=== PATIENT | female | born 1960 | race Caucasian/White ===

== ENCOUNTER 2023-10-18 08:01 | Outpatient (OUT) | payer OTHER, SELFPAY ==
--- NOTE | 2023-10-18 08:04 | MM_ITS ---
Patient Name: PETE FLOYD MR#: [id number] : 1960 Exam Date: 10/18/2023 Ordering Doctor: DR LAWANDA ESPINOZA . RADIOLOGY REPORT PROCEDURE: MM TOMOSYNTHESIS SCREENING BI COMPARISON: MG MAMM SCREEN 3D CAROL CAD, 10/16/2022. MG MAMM CAROL DIAG FU, 10/18/2022. MG STEREO CORE NDL W CLIP LT, 10/29/2022. MAMMO POST BIOPSY LEFT, 10/29/2022. INDICATIONS: Screening Calculator Name NCI Breast Cancer Risk Assessment Tool 5 Year Breast Cancer Risk 1.90% Lifetime Breast Cancer Risk 8.40% Personal Breast Cancer No Personal Ovarian Cancer No Treatments None Family Cancers None LOCATION: [facility] BREAST COMPOSITION: Scattered areas fibroglandular density. FINDINGS: DIAGNOSTIC CATEGORY 2--BENIGN FINDING. NO CHANGE FROM COMPARISON. Scattered benign-appearing calcifications are present. Scattered benign-appearing lymph nodes are present. Scattered benign-appearing nodules are present. RIGHT BREAST: No significant suspicious finding. LEFT BREAST: No significant suspicious finding. Micro clip marker upper outer quadrant, mid breast RECOMMENDATIONS: ROUTINE MAMMOGRAM AND CLINICAL EVALUATION IN 12 MONTHS. PLEASE NOTE: A NORMAL MAMMOGRAM DOES NOT EXCLUDE THE POSSIBILITY OF BREAST CANCER. A CLINICALLY SUSPICIOUS PALPABLE LUMP SHOULD BE BIOPSIED. Dictated by: Art Pack MD on 10/21/2023 at 07:57 Approved by: Art Pack MD on 10/21/2023 at 08:05
== END 2023-10-18 08:02 | disposition home or self-care (01) ==
LOC: MAMMO 08:01
PROVIDERS: PCP Family Medicine; Visit Provider Family Medicine
DX: Z12.31 Encounter for screening mammogram for malignant neoplasm of breast (principal)
CPT/HCPCS: 77063; 77067

== ENCOUNTER 2024-12-28 13:24 | Outpatient (OUT) | payer OTHER, SELFPAY ==
--- NOTE | 2024-12-28 13:29 | MM_ITS ---
Patient Name: PETE FLOYD MR#: [id number] : 1960 Exam Date: 12/28/2024 Ordering Doctor: DR Boogie Lopez . RADIOLOGY REPORT PROCEDURE: MM TOMOSYNTHESIS SCREENING BI COMPARISON: MM TOMOSYNTHESIS SCREENING BI, 10/18/2023. MAMMO POST BIOPSY LEFT, 10/29/2022. MG STEREO CORE NDL W CLIP LT, 10/29/2022. MG MAMM CAROL DIAG FU, 10/18/2022. INDICATIONS: Screening for malignant neoplasm Calculator Name NCI Breast Cancer Risk Assessment Tool 5 Year Breast Cancer Risk 1.90% Lifetime Breast Cancer Risk 8.10% Personal Breast Cancer No Personal Ovarian Cancer No Treatments None Family Cancers None LOCATION: [facility] BREAST COMPOSITION: There are scattered areas of fibroglandular density. FINDINGS: DIAGNOSTIC CATEGORY 1--NEGATIVE. LEFT BREAST: No significant suspicious finding. RIGHT BREAST: No significant suspicious finding. RECOMMENDATIONS: ROUTINE MAMMOGRAM AND CLINICAL EVALUATION IN 12 MONTHS. PLEASE NOTE: A NORMAL MAMMOGRAM DOES NOT EXCLUDE THE POSSIBILITY OF BREAST CANCER. A CLINICALLY SUSPICIOUS PALPABLE LUMP SHOULD BE BIOPSIED. Dictated by: Diego Cartwright DO on 12/28/2024 at 16:36 Approved by: Diego Cartwright DO on 12/28/2024 at 16:38
== END 2024-12-28 13:25 | disposition home or self-care (01) ==
LOC: MAMMO 13:25
PROVIDERS: PCP Family Medicine; Visit Provider Family Medicine
DX: Z12.31 Encounter for screening mammogram for malignant neoplasm of breast (principal)
CPT/HCPCS: 77063; 77067

== ENCOUNTER 2025-04-02 13:46 | Emergency (ER) | payer OTHER, SELFPAY ==
[2025-04-02 13:49] VITALS: BP 168/98; PULSE 60; TEMP 36.7; O2SAT 99
--- OUTSIDE RECORDS SUMMARY | 2025-04-02 13:55 | XMS_ITS | Clinical Summary ---
Author Organization [employer] [facility] Address [id number] [address] [place] [address] Care Team Providers Care Report Clerk Name Role Phone Regla Madden DO Primary Care Provider Unavaila ble Allergies No known active allergies Medications aspirin 81 mg Take 81 mg by mouth daily. Active losartan (COZAAR) 25 mg tablet Take 25 mg by mouth daily. Active pravastatin (PRAVACHOL) 40 mg tablet Take 40 mg by mouth daily. Active hydroCHLOROthiaz j carlos (HYDRODIURIL) 50 mg tablet Take 50 mg by mouth daily. Active kyvbpbtf-tnok-XI -calcium &mins (THERAGRAN-M) 9 mg iron-400 mcg tablet Take 1 tablet by mouth daily. Active propranoloL (INDERAL) 80 mg tablet Take 80 mg by mouth daily. Active metFORMIN (GLUCOPHAGE) 850 mg tablet Take 850 mg by mouth 2 (two) times a day with meals. Active Family History Medical History Relation Name Comments Breast cancer Neg Hx Social History Tobacco Use Types Packs/Day Years Used Date Smoking Tobacco: Never Smokeless Tobacco: Never Alcohol Use Standard Drinks/Week Comments Yes 0 (1 standard drink = 0.6 oz pur e alcohol) Childcare Answer Date Recorded Childcare Unknown 03/11/2019 Employment Answer Date Recorded Employment Unknown 03/11/2019 Purpose - Life Answer Date Recorded Purpose and direction in life Unknown Comments No Sex and Gender Information Value Date Recorded Sex Assigned at Not on file Legal Sex Female 11:31 AM EDT Gender Identity Not on file Sexual Orientation Not on file Last Filed Vital Signs Vital Sign Reading Time Taken Comments Blood Pressure 141/96 06/01/2021 8:09 AM EDT Pulse 60 06/01/2021 8:05 AM EDT Temperature 36.4 C (97.6 F) 06/01/2021 6:23 AM EDT Respiratory Rate 15 06/01/2021 8:05 AM EDT Oxygen Saturation 93% 06/01/2021 8:05 AM EDT Inhaled Oxygen Concentration - - Weight 127 kg (280 lb) 06/01/2021 6:23 AM EDT Height 167.6 cm (5' 6 ) 06/01/2021 6:23 AM EDT Body Mass Index 45.19 06/01/2021 6:23 AM EDT Plan of Treatment Health Maintenance Due Date Last Done Comments Depression Screening 1973 Tobacco Screening 1973 Adult BMI Screening 1979 DTaP,Tdap and Td Vaccines (1 - Tdap) 1980 Pap Smear 1982 COVID-19 Vaccine (3 - 2023-2 5 season) 2024 12/23/2020, 11/23/2020 Influenza Vaccine 05/31/2025 06/29/2020, , 05/31/2018, Additional history exists Zoster (Shingles) Vaccine Completed 05/20/2019, Medical Devices Implanted Type Area Respiratory Assistant Device Identifier Shelf Expiration Date Model / Serial / Lot Marker Brst Hydromark 18ga T3 Mammotome Stereotactic - [id number] Implanted:Qty: 1 on 08/04/2020 at [facility] Other Implant Right: Breast [employer] MAMMOTOME 05/22/2023 [id number] [id number] / / [id number] Insurance FRONTPATH Care Teams Report Clerk Relationship Specialty Start Date End Date Regla Madden DO PCP - General Family Medicine 05/30/21
--- OUTSIDE RECORDS SUMMARY | 2025-04-02 13:55 | XMS_ITS | CCD ---
Author Organization [facility] Care Team Providers Care Shopping Centre Manager Name Role Phone OLGA, DR BOOGIE Delatorre Admitting Unavailable NADERER, DR BOOGIE Delatorre Attending Unavailable NADERER, DR BOOGIE Delatorre Primary Care Unavailable CADWELL, DR FREDY Lyons Consulting Unavailable NADERER, DR BOOGIE Delatorre Consulting Unavailable NADERER, DR BOOGIE Delatorre Admitting Unavailable NADERER, DR BOOGIE Delatorre Attending Unavailable NADERER, DR BOOGIE Delatorre Primary Care Unavailable NADERER, DR BOOGIE Delatorre Consulting Unavailable NADERER, DR BOOGIE Delatorre Admitting Unavailable NADERER, DR BOOGIE Delatorre Attending Unavailable NADERER, DR BOOGIE Delatorre Primary Care Unavailable NUBIAEBDIA, DR ROBBY Lopez Consulting Unavailable NADERER, DR BOOGIE Delatorre Consulting Unavailable NADERER, DR BOOGIE Delatorre Admitting Unavailable NADERER, DR BOOGIE Delatorre Attending Unavailable NADERER, DR BOOGIE Delatorre Primary Care Unavailable ZIEBER, DR ROBBY Lopez Consulting Unavailable NADERER, DR BOOGIE Delatorre Consulting Unavailable Unavailable Primary Care Provider Unavailabl e Medications Current Medications Medication Drug Class(es) Dates Sig (Normalized) Sig (Original) hydroCHLOROthiazide 50 mg oral tablet (3 sources) Thiazide Diuretic Start: 4 End: 6 take 1 tablet by mouth once daily hydroCHLOROthiazide (HYDRODiuril) 50 MG tablet Indications: Essential hypertension, benign (CMS/HCC) Take 1 tablet (50 mg) by mouth 1 (one) time each day at the same time 90 tablet 3 01/04/2025 01/04/2026 Active losartan potassium 25 mg oral tablet (3 sources) Angiotensin 2 Receptor Renee Start: 4 End: 6 take 1 tablet by mouth once daily losartan (Cozaar) 25 MG tablet Indications: Essential hypertension, benign (CMS/HCC) Take 1 tablet (25 mg) by mouth 1 (one) time each day at the same time 90 tablet 3 01/04/2025 01/04/2026 Active metFORMIN hydrochloride 850 mg oral tablet (3 sources) Biguanide Start: 4 End: 6 take 1 tablet by mouth in the morning metFORMIN (Glucophage) 850 MG tablet Indications: Type 2 diabetes mellitus with hyperglycemia, without long-term current use of insulin (CMS/HCC) Take 1 tablet (850 mg) by mouth in the morning and 1 tablet (850 mg) in the evening. Take with meals. 180 tablet 3 01/04/2025 01/04/2026 Active pravastatin sodium 40 mg oral tablet (3 sources) HMG-CoA Reductase Inhibitor Start: 4 End: 6 take 1 tablet by mouth once daily pravastatin (Pravachol) 40 MG tablet Indications: Dyslipidemia (CMS/HCC) Take 1 tablet (40 mg) by mouth 1 (one) time each day at the same time 90 tablet 3 01/04/2025 01/04/2026 Active propranolol hydrochloride 80 mg oral tablet (3 sources) beta-Adrenergic Renee Start: End: 6 take 1 tablet by mouth in the morning propranolol (Inderal) 80 MG tablet Indications: Essential hypertension, benign (CMS/HCC) Take 1 tablet (80 mg) by mouth in the morning and 1 tablet (80 mg) before bedtime. 180 tablet 3 01/04/2025 01/04/2026 Active Problems Problem Classification Problem Date Documented Date Episodic/Chronic Diabetes mellitus with complications (2 sources) Type 2 diabetes mellitus with hyperglycemia; Translations: [Hyperglycemia due to type 2 diabetes mellitus] Onset: 07-29-2022 01-04-2025 Chronic Disorders of lipid metabolism (1 source) Dyslipidemia; Translations: [Hyperlipidemia, unspecified] 01-04-2025 Chronic Essential hypertension (1 source) Benign essential hypertension; Translations: [Essential (primary) hypertension] 01-04-2025 Chronic Nonmalignant breast conditions (1 source) Fibrosclerosis of left breast; Translations: [FIBROSCLEROSIS OF LEFT BREAST] Onset: 10-31-2022 Chronic Nonmalignant breast conditions (5 sources) Mammographic calcification found on diagnostic imaging of breast; Translations: [Unspecified lump in the left breast, upper outer quadrant] Onset: 10-23-2022 Episodic Other screening for suspected conditions (not mental disorders or infectious disease) (9 sources) Other abnormal and inconclusive findings on diagnostic imaging of breast; Translations: [Encounter for screening mammogram for malignant neoplasm of breast] Onset: 10-16-2022 Episodic Results Test Name Value Interpretation Reference Range Facility MM TOMOSYNTHESIS SCREENING B Ion 12-28-2024 [place] [address] Mammography Report Signed Patient: LAURITA RAPHAEL MR#: [id number] : 1960 Acct:[id number] Age/Sex: 64 / F ADM Date: 12/28/24 Loc: MAMMO Attending Dr: Boogie Espinoza M.D. Ordering Physician: Boogie Espinoza M.D. Results: Date of Service: 12/28/24 Follow Up: Procedure(s): MM tomosynthesis screening BI Accession Number(s): [id number] cc: Boogie Espinoza M.D. Patient Name: LAURITA RAPHAEL MR#: [id number] : 1960 Exam Date: 12/28/2024 Ordering Doctor: DR Boogie Espinoza . RADIOLOGY REPORT PROCEDURE: MM TOMOSYNTHESIS SCREENING BI COMPARISON: MM TOMOSYNTHESIS SCREENING BI, 10/18/2023. MAMMO POST BIOPSY LEFT, 10/29/2022. MG STEREO CORE NDL W CLIP LT, 10/29/2022. MG MAMM CAROL DIAG FU, 10/18/2022. INDICATIONS: Screening for malignant neoplasm Calculator Name NCI Breast Cancer Risk Assessment Tool 5 Year Breast Cancer Risk 1.90% Lifetime Breast Cancer Risk 8.10% Personal Breast Cancer No Personal Ovarian Cancer No Treatments None Family Cancers None LOCATION: The [facility] BREAST COMPOSITION: There are scattered areas of fibroglandular density. FINDINGS: DIAGNOSTIC CATEGORY 1--NEGATIVE. LEFT BREAST: No significant suspicious finding. RIGHT BREAST: No significant suspicious finding. RECOMMENDATIONS: ROUTINE MAMMOGRAM AND CLINICAL EVALUATION IN 12 MONTHS. PLEASE NOTE: A NORMAL MAMMOGRAM DOES NOT EXCLUDE THE POSSIBILITY OF BREAST CANCER. A CLINICALLY SUSPICIOUS PALPABLE LUMP SHOULD BE BIOPSIED. Dictated by: Diego Cartwright DO on 12/28/2024 at 16:36 Approved by: Diego Cartwright DO on 12/28/2024 at 16:38 Dictated By: Diego Cartwright M.D. Signed By: 12/28/249 DD/ 37 TD/TT: Crotch Piece Baster: [facility] Radiology, Radiologarun viera MD - 12/28/2024 [place] [address] Mammography Report Signed Patient: LAURITA RAPHAEL MR#: [id number] : 1960 Acct:[id number] Age/Sex: 64 / F ADM Date: 12/28/24 Loc: MAMMO Attending Dr: Boogie Espinoza M.D. Ordering Physician: Booige Espinoza M.D. Results: Date of Service: 12/28/24 Follow Up: Procedure(s): MM tomosynthesis screening BI Accession Number(s): [id number] cc: Boogie Espinoza M.D. Patient Name: LAURITA RAPHAEL MR#: [id number] : 1960 Exam Date: 12/28/2024 Ordering Doctor: DR Boogie Espinoza . RADIOLOGY REPORT PROCEDURE: MM TOMOSYNTHESIS SCREENING BI COMPARISON: MM TOMOSYNTHESIS SCREENING BI, 10/18/2023. MAMMO POST BIOPSY LEFT, 10/29/2022. MG STEREO CORE NDL W CLIP LT, 10/29/2022. MG MAMM CAROL DIAG FU, 10/18/2022. INDICATIONS: Screening for malignant neoplasm Calculator Name NCI Breast Cancer Risk Assessment Tool 5 Year Breast Cancer Risk 1.90% Lifetime Breast Cancer Risk 8.10% Personal Breast Cancer No Personal Ovarian Cancer No Treatments None Family Cancers None LOCATION: The [facility] BREAST COMPOSITION: There are scattered areas of fibroglandular density. FINDINGS: DIAGNOSTIC CATEGORY 1--NEGATIVE. LEFT BREAST: No significant suspicious finding. RIGHT BREAST: No significant suspicious finding. RECOMMENDATIONS: ROUTINE MAMMOGRAM AND CLINICAL EVALUATION IN 12 MONTHS. PLEASE NOTE: A NORMAL MAMMOGRAM DOES NOT EXCLUDE THE POSSIBILITY OF BREAST CANCER. A CLINICALLY SUSPICIOUS PALPABLE LUMP SHOULD BE BIOPSIED. Dictated by: Diego Cartwright DO on 12/28/2024 at 16:36 Approved by: Diego Cartwright DO on 12/28/2024 at 16:38 Dictated By: Diego Cartwright M.D. Signed By: 12/28/241638 DD/ 37 TD/TT: Crotch Piece Baster: [facility] Radiology Study observation (narrative) [facility] MM TOMOSYNTHESIS SCREENING B IOrdered By: Radiologist Radiology on 12-28-2024 [facility] Work Phone: MAMMO POST BIOPSY LEFTon MAMMO POST BIOPSY LEFT Patient: LAURITA RAPHAEL Exam Date: 10/29/2022 : 1960 Gender:F Ordering : DR BOOGIE ESPINOZA . Admission #: [id number] Family : Order #: [id number] CLICK HERE TO VIEW EXAM This report includes an Addendum and supersedes previous reports for this exam. RADIOLOGY REPORT PROCEDURE: MAMMOGRAM POST BIOPSY IMAGES COMPARISON: MG STEREO CORE NDL W CLIP LT, 10/29/2022. MG MAMM CAROL DIAG FU, 10/18/2022. MG MAMM SCREEN 3D CAROL CAD, 10/16/2022. MG MAMM DX 3D LT CAD, 08/15/2021. INDICATIONS: Mammographic calcification of left breast BREAST COMPOSITION: Scattered areas fibroglandular density. FINDINGS: BIOPSY MARKER: A metallic marker has been placed in the targeted location within the upper-outer quadrant of the left breast. BREAST FINDINGS: Expected post biopsy findings. RECOMMENDATIONS: Dictated by: Robby Nj M.D. on 10/29/2022 at 12:06 Approved by: Robby Nj M.D. on 10/29/2022 at 12:07 ADDENDUM: FINDINGS: DIAGNOSTIC CATEGORY 3--PROBABLY BENIGN FINDING. THE FOLLOWING FINDING(S) HAS A HIGH PROBABILITY OF A BENIGN ETIOLOGY: RECOMMENDATIONS: SHORT TERM FOLLOW-UP DIAGNOSTIC MAMMOGRAM LEFT BREAST IN 6 MONTHS. Dictated by: Robby Nj M.D. on 11/02/2022 at 12:52 Approved by: Robby Nj M.D. on 11/02/2022 at 12:52 [facility] MG STEREO CORE NDL W CLIP LT on 10-29-2022 MG STEREO CORE NDL W CLIP LT Patient: LAURITA RAPHAEL Exam Date: 10/29/2022 : 1960 Gender:F Ordering : DR BOOGIE ESPINOZA . Admission #: [id number] Family : Order #: [id number] CLICK HERE TO VIEW EXAM This report includes an Addendum and supersedes previous reports for this exam. RADIOLOGY REPORT PROCEDURE: MAMMOGRAM BIOPSY STEREO CORE COMPARISON: US BREAST LEFT LIMITED, 10/18/2022. INDICATIONS: Mammographic calcification of left breast DESCRIPTION: Following informed consent, digital stereotactic mammographic views were obtained to localize the lesion. Multiple vacuum-assisted core biopsies were obtained. Specimen images were obtained to confirm proper sampling. The location of the biopsy was then marked as indicated below. FINDINGS: RECOMMENDATIONS: SPECIMEN #, LOCATION: 5 core samples; upper outer quadrant. SPECIMEN IMAGE: Portion of the mass and calcifications seen within core 4. BIOPSY NEEDLE: 10 gauge Revolve(r) vacuum core biopsy needle. MARKER(S) PLACED: A single metallic marker was placed in the appropriate targeted location. MEDICATION: Buffered 1% lidocaine superficial;1% lidocaine with epinephrine deep. COMPLICATIONS: None. PATHOLOGY / LAB: Pending. CONCLUSION: 1. Technically successful biopsy of the breast lesion. 2. Pathology results are pending. An addendum will be added when pathology results are final. Dictated by: Robby Nj M.D. on 10/29/2022 at 09:12 Approved by: Robby Nj M.D. on 10/29/2022 at 09:15 ADDENDUM: Final pathologic diagnosis: Benign breast parenchyma with small intramammary lymph node, focal periductal chronic inflammation, and mild stromal fibrosis. No evidence of malignancy. Note was made by pathologist that microcalcifications were not identified. Pathologist was contacted since calcifications were seen on the tissue specimen radiographs. Tissues were re-examined with no visible calcifications. Pathologist mentions that due to make up of microcalcifications they may not be visible to him. Dictated by: Robby Nj M.D. on 11/02/2022 at 12:45 Approved by: Robby Nj M.D. on 11/02/2022 at 12:52 [facility] MG MAMM CAROL DIAG FUon 2022 MG MAMM CAROL DIAG FU Patient: GIOVANNI RAPHAEL Exam Date: 10/18/2022 : 1960 Gender:F Ordering : DR BOOGIE ESPINOZA . Admission #: [id number] Family : Order #: [id number] CLICK HERE TO VIEW EXAM RADIOLOGY REPORT PROCEDURE: MAMMOGRAM BILATERAL DIGANOSTIC DIGITAL FOLLOW UP, 10/18/2022, 12:46 ULTRASOUND BREAST LEFT LIMITED, 10/18/2022, 13:24 COMPARISON: MG MAMM SCREEN 3D CAROL CAD, 10/16/2022. INDICATIONS: Abnormal findings on diagnostic imaging of breast Calculator Name NCI Breast Cancer Risk Assessment Tool 5 Year Breast Cancer Risk 1.40% Lifetime Breast Cancer Risk 6.90% Personal Breast Cancer No Personal Ovarian Cancer No Treatments None Family Cancers None LOCATION: The [facility] BREAST COMPOSITION: Scattered areas fibroglandular density. FINDINGS: DIAGNOSTIC CATEGORY 4--SUSPICIOUS FOR MALIGNANCY. FINDING DOES NOT EXHIBIT CLASSIC FINDINGS OF BREAST CANCER: RIGHT BREAST: Spot magnification views demonstrate several collections of calcifications within the upper-outer quadrant favoring calcifying fibroadenomas. Annual screening recommended. LEFT BREAST: Spot magnification views demonstrate persistence of a partially circumscribed 7 mm mass within upper-outer quadrant, approximately 3 o'clock, containing numerous punctate calcifications. Ultrasound evaluation demonstrates a lymph node like structure which does not convincingly correspond to the mammographic findings. Stereotactic guided breast biopsy of the mass containing punctate calcifications is recommended. RECOMMENDATIONS: STEREOTACTIC BREAST BIOPSY: LEFT BREAST PLEASE NOTE: A NORMAL MAMMOGRAM DOES NOT EXCLUDE THE POSSIBILITY OF BREAST CANCER. A CLINICALLY SUSPICIOUS PALPABLE LUMP SHOULD BE BIOPSIED. Dictated by: Robby Nj M.D. on 10/18/2022 at 13:56 Approved by: Robby Nj M.D. on 10/18/2022 at 14:09 Normal [facility] US BREAST LEFT LIMITEDon US BREAST LEFT LIMITED Patient: LAURITA RAPHAEL Exam Date: 10/18/2022 : 1960 Gender:F Ordering : DR BOOGIE ESPINOZA . Admission #: [id number] Family : Order #: [id number] CLICK HERE TO VIEW EXAM RADIOLOGY REPORT PROCEDURE: MAMMOGRAM BILATERAL DIGANOSTIC DIGITAL FOLLOW UP, 10/18/2022, 12:46 ULTRASOUND BREAST LEFT LIMITED, 10/18/2022, 13:24 COMPARISON: MG MAMM SCREEN 3D CAROL CAD, 10/16/2022. INDICATIONS: Abnormal findings on diagnostic imaging of breast Calculator Name NCI Breast Cancer Risk Assessment Tool 5 Year Breast Cancer Risk 1.40% Lifetime Breast Cancer Risk 6.90% Personal Breast Cancer No Personal Ovarian Cancer No Treatments None Family Cancers None LOCATION: [facility] BREAST COMPOSITION: Scattered areas fibroglandular density. FINDINGS: DIAGNOSTIC CATEGORY 4--SUSPICIOUS FOR MALIGNANCY. FINDING DOES NOT EXHIBIT CLASSIC FINDINGS OF BREAST CANCER: RIGHT BREAST: Spot magnification views demonstrate several collections of calcifications within the upper-outer quadrant favoring calcifying fibroadenomas. Annual screening recommended. LEFT BREAST: Spot magnification views demonstrate persistence of a partially circumscribed 7 mm mass within upper-outer quadrant, approximately 3 o'clock, containing numerous punctate calcifications. Ultrasound evaluation demonstrates a lymph node like structure which does not convincingly correspond to the mammographic findings. Stereotactic guided breast biopsy of the mass containing punctate calcifications is recommended. RECOMMENDATIONS: STEREOTACTIC BREAST BIOPSY: LEFT BREAST PLEASE NOTE: A NORMAL MAMMOGRAM DOES NOT EXCLUDE THE POSSIBILITY OF BREAST CANCER. A CLINICALLY SUSPICIOUS PALPABLE LUMP SHOULD BE BIOPSIED. Dictated by: oRbby Nj M.D. on 10/18/2022 at 13:56 Approved by: Robby Nj M.D. on 10/18/2022 at 14:09 Normal [facility] MAMM SCREEN 3D CAROL CADon 10-16-2022 MAMM SCREEN 3D CAROL CAD Patient: LAURITA RAPHAEL Exam Date: 10/16/2022 : 1960 Gender:F Ordering : DR BOOGIE ESPINOZA . Admission #: [id number] Family : Order #: [id number] CLICK HERE TO VIEW EXAM RADIOLOGY REPORT PROCEDURE: MAMMOGRAM SCREENING 3D BILATERAL CAD COMPARISON: None. INDICATIONS: Screening mammography Calculator Name NCI Breast Cancer Risk Assessment Tool 5 Year Breast Cancer Risk 1.40% Lifetime Breast Cancer Risk 6.90% Personal Breast Cancer No Personal Ovarian Cancer No Treatments None Family Cancers None LOCATION: [facility] BREAST COMPOSITION: Scattered areas fibroglandular density. FINDINGS: DIAGNOSTIC CATEGORY 0--INCOMPLETE: NEED ADDITIONAL IMAGING EVALUATION. Scattered benign-appearing calcifications are present. Scattered benign-appearing lymph nodes are present. Numerous bilateral subcentimeter nodules. RIGHT BREAST: 2 clusters of microcalcifications in the upper-outer quadrant, mid breast. Spot magnification suggested for further characterization. LEFT BREAST: 0.7 mm well-circumscribed nodule with possible microcalcifications, outer left breast on the CC projection poorly visualized on MLO projection. Spot magnification is recommended. RECOMMENDATIONS: ADDITIONAL MAMMOGRAPHIC VIEWS REQUIRED: BILATERAL BREASTS - spot magnification PLEASE NOTE: A NORMAL MAMMOGRAM DOES NOT EXCLUDE THE POSSIBILITY OF BREAST CANCER. A CLINICALLY SUSPICIOUS PALPABLE LUMP SHOULD BE BIOPSIED. Dictated by: Fredy Pack MD on 10/16/2022 at 11:22 Approved by: Fredy Pack MD on 10/16/2022 at 11:26 Normal [facility] CBC AUTO DIFFon 07-24-2022 BASO # 0.1 103/ul Normal 0.0-0.1 [facility] Comment on above: Performed By: #### C BC #### [facility] [address] [place] [address] Dr. Gita Chow Basophils/100 WBC (Bld) 1.1 % Normal 0.2-2.0 [facility] Comment on above: Performed By: #### C BC #### [facility] [address] [place] [address] Dr. Gita Chow EO # 0.4 103/ul Normal 0.0-0.7 [facility] Comment on above: Performed By: #### C BC #### [facility] [address] [place] [address] Dr. Gita Chow Eosinophils/100 WBC (Bld) 4.5 % Normal 0.9-7.0 [facility] Comment on above: Performed By: #### C BC #### [facility] [address] [place] [address] Dr. Gita Chow Erythrocyte distribution width (RBC) [Ratio] 13.6 % Normal 11.0-15.0 [facility] Comment on above: Performed By: #### C BC #### [facility] [address] [place] [address] Dr. Gita Chow Hematocrit (Bld) [Volume fraction] 44.6 % Normal 36.0-48.0 [facility] Comment on above: Performed By: #### C BC #### [facility] [address] [place] [address] Dr. Gita Chow Hemoglobin (Bld) [Mass/Vol] 14.5 g/dL Normal 12.0-16.0 [facility] Comment on above: Performed By: #### C BC #### [facility] [address] [place] [address] Dr. Gita Chow IG # 0.03 10e3/ul Normal 0.00-0.03 [facility] Comment on above: Performed By: #### C BC #### [facility] [address] [place] [address] Dr. Gita Chow IG % 0.4 % Normal 0.0-0.5 [facility] Comment on above: Performed By: #### C BC #### [facility] [address] [place] [address] Dr. Gita Chow LYMPH # 2.3 103/ul Normal 1.2-3.8 [facility] Comment on above: Performed By: #### C BC #### [facility] [address] [place] [address] Dr. Gita Chow Lymphocytes/100 WBC (Bld) 28.2 % Normal 20.5-60.0 [facility] Comment on above: Performed By: #### C BC #### [facility] [address] [place] [address] Dr. Gita Chow MANUAL DIFF REQ NO Normal [facility] Comment on above: Performed By: #### C BC #### [facility] [address] [place] [address] Dr. Gita Chow MCH (RBC) [Entitic mass] 30.0 pg Normal 26.7-34.0 [facility] Comment on above: Performed By: #### C BC #### [facility] [address] [place] [address] Dr. Gita Chow MCHC (RBC) [Mass/Vol] 32.5 g/dL Normal 29.9-35.2 [facility] Comment on above: Performed By: #### C BC #### [facility] [address] [place] [address] Dr. Gita Chow MCV (RBC) [Entitic vol] 92.1 fL Normal 81.0-99.0 [facility] Comment on above: Performed By: #### C BC #### [facility] [address] [place] [address] Dr. Gita Chow MONO # 0.8 103/ul Normal 0.3-0.8 [facility] Comment on above: Performed By: #### C BC #### [facility] [address] [place] [address] Dr. Gita Chow Monocytes/100 WBC (Bld) 9.1 % Normal 1.7-12.0 [facility] Comment on above: Performed By: #### C BC #### [facility] [address] [place] [address] Dr. Gita Chow NEUT # 4.7 103/ul Normal 1.4-6.5 [facility] Comment on above: Performed By: #### C BC #### [facility] [address] [place] [address] Dr. Gita Chow Neutrophils/100 WBC (Bld) 56.7 % Normal 43.0-75.0 [facility] Comment on above: Performed By: #### C BC #### [facility] [address] [place] [address] Dr. Gita Chow Platelet mean volume (Bld) [Entitic vol] 10.7 fL Normal 9.5-13.5 [facility] Comment on above: Performed By: #### C BC #### [facility] [address] [place] [address] Dr. Gita Chow PLT 386 103/ul Normal 150-450 [facility] Comment on above: Performed By: #### C BC #### [facility] [address] [place] [address] Dr. Gita Chow RBC 4.84 106/ul Normal 4.20-5.40 [facility] Comment on above: Performed By: #### C BC #### [facility] [address] [place] [address] Dr. Gita Chow WBC 8.2 103/ul Normal 4.0-11.0 [facility] Comment on above: Performed By: #### C BC #### [facility] [address] [address] [address] Gita Chow GLYCOHEMOGLOBIN A1Con 2021 ADA RECOMMENDATION SEE BELOW Normal [facility] Comment on above: Result Comment: ADA RECOMMENDED LIMIT 4.0 - 6.0 ADA THERAPEUTIC TARGET < 7.0 ACTION SUGGESTED > 7.0 Performed By: #### A 1C #### [facility] [address] [place] [address] Dr. Gita Chow Glucose [Mass/Vol] 143 mg/dL Normal [facility] Comment on above: Performed By: #### A 1C #### [facility] [address] [place] [address] Dr. Gita Chow HbA1c (Bld) [Mass fraction] 6.6 % Critically high 4.5-6.2 [facility] Comment on above: Performed By: #### A 1C #### [facility] [address] [place] [address] Dr. Gita Chow LIPID PROFILEon 07-24-2022 CHOL-HDL RATIO NORM SEE BELOW Normal [facility] Comment on above: Result Comment: 3.3 - 4.4 LOW RISK 4.4 - 7.1 AVERAGE RISK 7.1 - 11.0 MODERATE RISK >11.0 HIGH RISK Performed By: #### T SH, LIPID, BMP, LIVER #### [facility] [address] [place] [address] Dr. Gita Chow Cholesterol [Mass/Vol] 139 mg/dL Normal <=200 [facility] Comment on above: Performed By: #### T SH, LIPID, BMP, LIVER #### [facility] [address] [address] [address] Gita Chow Cholesterol in HDL [Mass/Vol] 43 mg/dL Normal 40-60 [facility] Comment on above: Performed By: #### T SH, LIPID, BMP, LIVER #### [facility] [address] [address] [address] Gita Chow Cholesterol in LDL [Mass/Vol] 83.2 mg/dL Normal [facility] Comment on above: Performed By: #### T SH, LIPID, BMP, LIVER #### [facility] [address] [address] [address] Gita Chow Cholesterol.total/C holesterol in HDL [Mass ratio] 3.2 {ratio} Normal [facility] Comment on above: Performed By: #### T SH, LIPID, BMP, LIVER #### [facility] [address] [address] [address] Gita Chow HDL NORMAL > or = 60 mg/dl - LO W CARDIOVASCULAR RISK <40 mg/dl - HIGH CARDIOVASCULAR RISK Normal [facility] Comment on above: Performed By: #### T SH, LIPID, BMP, LIVER #### [facility] [address] [place] [address] Dr. Gita Chow LDL CALC NORMAL SEE BELOW Normal [facility] Comment on above: Result Comment: <100 mg/dl OPTIMAL 100 - 129 mg/dl NEAR OR ABOVE OPTIMAL 130 - 159 mg/dl BORDERLINE HIGH 160 - 189 mg/dl HIGH >190 mg/dl VERY HIGH Performed By: #### T SH, LIPID, BMP, LIVER #### [facility] [address] [place] [address] Dr. Gita Chow Triglyceride [Mass/Vol] 64 mg/dL Normal <=150 [facility] Comment on above: Performed By: #### T SH, LIPID, BMP, LIVER #### [facility] [address] [place] [address] Dr. Gita Chow VLDL CALC 12.8 mg/dL Normal [facility] Comment on above: Performed By: #### T SH, LIPID, BMP, LIVER #### [facility] [address] [address] [address] Gita Chow LIVER PROFILEon 07-24-2022 Albumin [Mass/Vol] 3.4 g/dL Normal 3.4-5.0 [facility] Comment on above: Performed By: #### T SH, LIPID, BMP, LIVER #### [facility] [address] [place] [address] Dr. Gita Chow Albumin/Globulin [Mass ratio] 0.8 {ratio} Normal [facility] Comment on above: Performed By: #### T SH, LIPID, BMP, LIVER #### [facility] [address] [place] [address] Dr. Gita Chow ALP [Catalytic activity/Vol] 81 U/L Normal 46-116 [facility] Comment on above: Performed By: #### T SH, LIPID, BMP, LIVER #### [facility] [address] [place] [address] Dr. Gita Chow ALT [Catalytic activity/Vol] 64 U/L Critically high 14-59 [facility] Comment on above: Performed By: #### T SH, LIPID, BMP, LIVER #### [facility] [address] [place] [address] Dr. Gita Chow AST [Catalytic activity/Vol] 31 U/L Normal 15-37 [facility] Comment on above: Performed By: #### T SH, LIPID, BMP, LIVER #### [facility] [address] [place] [address] Dr. Gita Chow BILI, CONJUGATED 0.1 mg/dL Normal 0.0-0.2 [facility] Comment on above: Performed By: #### T SH, LIPID, BMP, LIVER #### [facility] [address] [place] [address] Dr. Gita Chow Bilirubin [Mass/Vol] 0.5 mg/dL Normal 0.2-1.0 [facility] Comment on above: Performed By: #### T SH, LIPID, BMP, LIVER #### [facility] [address] [place] [address] Dr. Gita Chow Globulin (S) [Mass/Vol] 4.2 g/dL Normal [facility] Comment on above: Performed By: #### T SH, LIPID, BMP, LIVER #### [facility] [address] [place] [address] Dr. Gita Chow Protein [Mass/Vol] 7.6 g/dL Normal 6.4-8.2 [facility] Comment on above: Performed By: #### T SH, LIPID, BMP, LIVER #### [facility] [address] [place] [address] Dr. Gita Chow MICROALBUMIN, RAND URon 07-01 mALB 0.8 mg/L Normal <=30.0 [facility] Comment on above: Performed By: #### M ALBR #### [facility] [address] [place] [address] Dr. Gita Chow PROF CHEM 8 (BAS METB)on Anion gap [Moles/Vol] 9.4 mmol/L Normal [facility] Comment on above: Performed By: #### T SH, LIPID, BMP, LIVER #### [facility] [address] [place] [address] Dr. Gita Chow Calcium [Mass/Vol] 8.7 mg/dL Normal 8.5-10.1 [facility] Comment on above: Performed By: #### T SH, LIPID, BMP, LIVER #### [facility] [address] [place] [address] Dr. Gita Chow Chloride [Moles/Vol] 101 mmol/L Normal 98-107 [facility] Comment on above: Performed By: #### T SH, LIPID, BMP, LIVER #### [facility] [address] [place] [address] Dr. Gita Chow CO2 [Moles/Vol] 32.3 mmol/L Critically high 21.0-32.0 [facility] Comment on above: Performed By: #### T SH, LIPID, BMP, LIVER #### [facility] [address] [place] [address] Dr. Gita Chow Creatinine [Mass/Vol] 0.71 mg/dL Normal 0.55-1.02 [facility] Comment on above: Performed By: #### T SH, LIPID, BMP, LIVER #### [facility] [address] [place] [address] Dr. Gita Chow EGFR-AF MALIAN >60 Normal >=60 [facility] Comment on above: Performed By: #### T SH, LIPID, BMP, LIVER #### [facility] [address] [place] [address] Dr. Gita Chow EGFR-NON AF MALIAN >60 Normal >=60 [facility] Comment on above: Performed By: #### T SH, LIPID, BMP, LIVER #### [facility] [address] [address] [address] Gita Chow Glucose [Mass/Vol] 185 mg/dL Critically high 74-106 [facility] Comment on above: Performed By: #### T SH, LIPID, BMP, LIVER #### [facility] [address] [place] [address] Dr. Gita Chow Potassium [Moles/Vol] 3.7 mmol/L Normal 3.5-5.1 [facility] Comment on above: Performed By: #### T SH, LIPID, BMP, LIVER #### [facility] [address] [place] [address] Dr. Gita Chow Sodium [Moles/Vol] 139 mmol/L Normal 136-145 [facility] Comment on above: Performed By: #### T SH, LIPID, BMP, LIVER #### [facility] [address] [place] [address] Dr. Gita Chow Urea nitrogen [Mass/Vol] 17.0 mg/dL Normal 7.0-18.0 [facility] Comment on above: Performed By: #### T SH, LIPID, BMP, LIVER #### [facility] [address] [place] [address] Dr. Gita Chow Urea nitrogen/Creatinine [Mass ratio] 23.9 mg/mg Normal [facility] Comment on above: Performed By: #### T SH, LIPID, BMP, LIVER #### [facility] [address] [place] [address] Dr. Gita Chow TSHon 07-24-2022 TSH 1.900 uIU/mL Normal 0.358-3.740 [facility] Comment on above: Performed By: #### T SH, LIPID, BMP, LIVER #### [facility] [address] [place] [address] Dr. Gita Chow FT4on 08-17-2020 Free T4 [Mass/Vol] 1.42 ng/dL Normal 0.64-1.79 [facility] Comment on above: Performed By: #### 4 500, 4520 #### [facility]ocrine [facility] Unless Otherwise Noted [address] [facility] [address] [place] [address] / COL[facility] #[id number]/CLIA # [id number] TSHon 08-17-2020 TSH Qn 2.25 uIU/ml Normal 0.47-4.68 [facility] Comment on above: Performed By: #### 4 886, 4520 #### [facility] Unless Otherwise Noted [address] [facility] [address] [place] [address] / [facility] #[id number]/CLIA # [id number] Encounters Encounter Date Encounter Type Care Provider Facility Start: 01-04-2025 End: 01-04-2025 Refill Boogie Esipnoza MD Work Phone: [facility] Comment on above: Essential hypertensi on, benign (CMS/HCC); Type 2 diabetes mellitus with hyperglycemia, without long-term current use of insulin ([facility]); Dyslipidemia ([facility]/HCC) Start: 12-28-2024 End: 12-28-2024 Clinisync Result Encounter Boogie Espinoza MD Work Phone: [facility] External Department Unsolicited Start: 12-28-2024 End: 12-28-2024 Clinisync Result Encounter Boogie Espinoza MD Work Phone: [facility] External Department Unsolicited Start: 10-29-2022 End: 10-29-[address] BOOGIE ESPINOZA Facility:[facility] Start: 10-18-2022 End: 10-19-[address] BOOGIE ESPINOZA Facility:[facility] Start: 10-16-2022 End: 10-17-[address] BOOGIE ESPINOZA Facility:[facility] Start: 07-29-2022 Encounter for genera l adult medical examination without abnormal findings DR BOOGIE ESPINOZA [facility] Start: 07-24-2022 End: 07-25-[address] BOOGIE ESPINOZA Facility:[facility] Start: 07-24-2022 End: 07-25-2022 Encounter for general adult medical examination without abnormal findings DR BOOGIE ESPINOZA Facility:[facility] Procedures Date Procedure Procedure Detail Performing Clinician Start: 12-28-2024 MM TOMOSYNTHESIS SCR EENING BI Boogie Espinoza MD Work Phone: Start: 12-28-2024 Mammography Boogie holland MD Work Phone: Start: 06-12-2018 Colonoscopy Boogie holland MD Work Phone: Plan of Treatment Date Care Activity Detail Author Start: 06-12-2028 Screening for malign ant neoplasm of colon [facility] Start: 12-28-2025 Screening for malign ant neoplasm of breast Mammogram [facility] Start: 05-31-2025 Influenza vaccination Influenz a Vaccine (Season Ended) [facility] Start: 10-21-2024 Screening for malign ant neoplasm of breast Mammogram [facility] Start: 05-31-2024 Influenza vaccination Influenza Vacc ine (#1) [facility] Start: 01-06-2024 Screening for malign ant neoplasm of colon FIT-DNA [facility] Start: 1991 Screening for malign ant neoplasm of cervix [facility] Start: 1982 Screening for malign ant neoplasm of cervix Pap Smear [facility] Start: 1961 Screening for malign ant neoplasm of colon [facility] Immunizations Immunization Date Immunization Notes Care Provider Fa cility 06-30-2020 influenza virus vacc ine, unspecified formulation Boogie Espinoza MD Work Phone: [facility] Healthcare Payers Date Payer Category Payer Unknown [id number] [id number] [id number] 1960 Unknown [id number] [id number] [id number] 1960 Unknown [id number] [id number] [id number] 1960 Unknown [id number] 2.16.84 [id number] Unknown [id number] Social History Date Type Detail Facility Tobacco smoking stat [facility] Tobacco smoking consumption unknown [facility] Healthcare Start: 1960 Sex assigned at Not on file [facility] Gender identity Not on file [facility] are Evaluation note Note Date & Type Note Facility Evaluation note Diagnosis Essential hypertension, benign (CMS/HCC) Essential hypertension, benign Type 2 diabetes mellitus with hyperglycemia, without long-term current use of insulin (CMS/HCC) Dyslipidemia ([facility]/HCC) Other and unspecified hyperlipidemia documented in this encounter [facility] Healthcare Summary Purpose Family History No Family History Records FoundNo Family History Records Found Advance Directives No Advanced Directives Records FoundNo Advanced Directives Records Found Additional Source Comments INFORMATION SOURCE (unrecogn ized section and content) DATE CREATED AUTHOR 08/18/2020 [facility] DATE CREATED AUTHOR AUTHOR'S ORGANIZ ATION 11/03/2022 [facility] Reason for Visit (unrecogniz ed section and content) Reason Onset Date Comments Med Refill 01/04/2025 FOR RECORDS PERTAINING TO PATIENTS WHO ARE OR HAVE BEEN ENROLLED IN A CHEMICAL DEPENDENCY/SUBSTANCEABUSE PROGRAM, SOME INFORMATION MAY BE OMITTED. This clinical summary was aggregated from multiple sources. Caution should be exercised in using it in the provision of clinical care. This summary normalizes information from multiple sources, and as a consequence, information in this document may materially change the coding, format and clinical context of patient data. In addition, data may be omitted in some cases. CLINICAL DECISIONS SHOULD BE BASED ON THE PRIMARY CLINICAL RECORDS. [facility] [employer] [facility]. provides no warranty or guarantee of the accuracy or completeness of information in this document.
--- OUTSIDE RECORDS SUMMARY | 2025-04-02 13:55 | XMS_ITS | Clinical Summary ---
Author Organization [facility] Address [address] [place] [address] Care Team Providers Care Research And Development Scientist Name Role Phone Unavailable Primary Care Provider Unavailabl e Medications hydroCHLOROthia zide (HYDRODiuril) 50 MG tabletIndicatio ns:Essential hypertension, benign Take 1 tablet (50 mg) by mouth 1 (one) time each day at the same time 90 tablet 3 01/04/2025 6 Active losartan (Cozaar) 25 MG tabletIndicatio ns:Essential hypertension, benign Take 1 tablet (25 mg) by mouth 1 (one) time each day at the same time 90 tablet 3 01/04/2025 6 Active metFORMIN (Glucophage) 850 MG tabletIndicatio ns:Type 2 diabetes mellitus with hyperglycemia, without long-term current use of insulin (HCC) Take 1 tablet (850 mg) by mouth in the morning and 1 tablet (850 mg) in the evening. Take with meals. 180 tablet 3 01/04/2025 6 Active pravastatin (Pravachol) 40 MG tabletIndicatio ns:Dyslipidemia Take 1 tablet (40 mg) by mouth 1 (one) time each day at the same time 90 tablet 3 01/04/2025 6 Active propranolol (Inderal) 80 MG tabletIndicatio ns:Essential hypertension, benign Take 1 tablet (80 mg) by mouth in the morning and 1 tablet (80 mg) before bedtime. 180 tablet 3 01/04/2025 6 Active Encounters Date Type Department Care Team Description 01/04/[address] [facility] [address] [place] [id number] Boogie Lopez MD Essential hypertension, benign ; Type 2 diabetes mellitus with hyperglycemia, without long-term current use of insulin (HCC); Dyslipidemia from Last 3 Months Social History Tobacco Use Types Packs/Day Years Used Date Smoking Tobacco: Never Assessed Comments Unknown Sex and Gender Information Value Date Recorded Sex Assigned at Not on file Legal Sex Female 7:25 PM EDT Gender Identity Not on file Sexual Orientation Not on file Last Filed Vital Signs Vital Sign Reading Time Taken Comments Blood Pressure 130/86 05/15/2021 12:00 PM EDT Pulse - - Temperature - - Respiratory Rate - - Oxygen Saturation - - Inhaled Oxygen Concentration - - Weight 127 kg (281 lb) 05/15/2021 12:00 PM EDT Height 165.1 cm (5' 5 ) 05/15/2021 12:00 PM EDT Body Mass Index 46.76 05/15/2021 12:00 PM EDT Plan of Treatment Health Maintenance Due Date Last Done Comments CT Colonography 1961 FIT 1961 FOBT 1961 Sigmoidoscopy 1961 Pap Smear 1982 Cervical Cancer Screening 1991 HPV/Cotest 1991 FIT-DNA 01/06/2024 01/05/2021, 06/03/2018 Influenza Vaccine (Season Ended) 2025 06/30/2020, 06/30/2018, 05/31/2018, Additional history exists Mammogram 12/28/2025 12/28/2024, 10/01, 10/18/2023, Additional history exists Colonoscopy 06/12/2028 06/12/2018, 06/12/2018 Colorectal Cancer Screening 06/12/2028 Procedures Procedure Name Priority Date/Time Associated Diagnosis Comments MM TOMOSYNTHESIS SCREENING BI 12/28/2024 4:38 PM EDT LAB COLOGUARD COLON CANCER SCREEN Routine 01/05/2021 COLONOSCOPY Routine 06/12/2018 12:00 PM EDT from Last 3 Months or Most Recently Relevant to Health Maintenance Results * MM TOMOSYNTHESIS SCREENING BI (12/28/2024 4:38 PM EDT) Anatomical Region Laterality Modality Other 12/28/2024 4:38 PM EDT Narrative 12/28/2024 4:39 [place] [address] Mammography Report Signed Patient: PETE RAPHAEL MR#: [id number] : 1960 Acct:[id number] Age/Sex: 64 / F ADM Date: 12/28/24 Loc: MAMMO Attending Dr: Boogie Lopez M.D. Ordering Physician: Boogie Lopez M.D. Results: Date of Service: 12/28/24 Follow Up: Procedure(s): MM tomosynthesis screening BI Accession Number(s): [id number] cc: Boogie Lopez M.D. Patient Name: PETE RAPHAEL MR#: [id number] : 1960 Exam Date: 12/28/2024 Ordering Doctor: DR Boogie Lopez . RADIOLOGY REPORT PROCEDURE: MM TOMOSYNTHESIS SCREENING [...] Treatments None Family Cancers None LOCATION: [facility] BREAST COMPOSITION: There are scattered areas [...] M.D. Signed By: 12/28/249 DD/ 37 TD/TT: Link Trainer Maintenance Man: Procedure Note Radiology, Radiologist, MD - 12/28/2024 [place] [address] Mammography Report Signed Patient: PETE RAPHAEL KMR#: [id number] : 1960cct:[id number] Age/Sex: 64 / FADM Date: 12/28/24 Loc: MAMMO Attending Dr: Boogie Lopez M.D. Ordering Physician: Boogie Lopez M.D.Results: Date of Service: 12/28/24Follow Up: Procedure(s): MM tomosynthesis screening BI Accession Number(s): [id number] cc: Boogie Lopez M.D. Patient Name: PETE RAPHAEL MR#: [id number] : 1960 Exam Date: 12/28/2024 Ordering Doctor: DR Boogie Lopez . RADIOLOGY REPORT PROCEDURE: MM TOMOSYNTHESIS SCREENING BI COMPARISON: MM TOMOSYNTHESIS SCREENING BI, 10/18/2023. MAMMO POSTBIOPSY LEFT, 10/29/2022. MG STEREO CORE NDL W CLIP LT, 10/29/2022. MG MAMM BILDIAG FU, 10/18/2022. INDICATIONS: Screening for malignant neoplasm Calculator Name NCI Breast Cancer Risk Assessment Tool 5 Year Breast Cancer Risk 1.90% Lifetime Breast Cancer Risk 8.10% Personal Breast Cancer No Personal Ovarian Cancer No Treatments None Family Cancers None LOCATION: [facility] BREAST COMPOSITION: There are scattered areas of fibroglandulardensity. FINDINGS: DIAGNOSTIC CATEGORY 1--NEGATIVE. LEFT BREAST: No significant suspicious finding. RIGHT BREAST: No significant suspicious finding. RECOMMENDATIONS: ROUTINE MAMMOGRAM AND CLINICAL EVALUATION IN 12 MONTHS. PLEASE NOTE: A NORMAL MAMMOGRAM DOES NOT EXCLUDE THE POSSIBILITY OFBREAST CANCER. A CLINICALLY SUSPICIOUS PALPABLE LUMP SHOULD BE BIOPSIED. Dictated by: Diego Cartwright DO on 12/28/2024 at 16:36 Approved by: Diego Cartwright DO on 12/28/2024 at 16:38 Dictated By: Diego Cartwright M.D. Signed By:12/28/24 1639 DD/ 1638 TD/TT: Link Trainer Maintenance Man: Boogie Lopez MD [facility] Final Result * Cologuard?? colon cancer screening (01/05/2021) COLOGUARD RESULT REPORTABLE Negative Not Applicable [facility] Comment: A negative result indicates a low likelihood that a colorectal cancer (CRC) or an advanced adenoma (adenomatous polyps with more advanced pre-malignant features) is present. The chance that a person with a negative Cologuard test has a colorectal cancer is less than 1 in 1500 (negative predictive value >99.9%) or has an advanced adenoma is less than 5.3% (negative predictive value 94.7%). These data are based on a prospective cross-sectional screening study of 10,000 individuals at average risk for colorectal cancer who were screened with both Cologuard and colonoscopy. (Joel T. et al, N Engl J Med 2014;370(14):7759-6304) The normal value (reference range) for this assay is negative. COLOGUARD RE-SCREENING RECOMMENDATION: Periodic routine colorectal cancer screening is an important part of preventive healthcare for asymptomatic persons at average risk for colorectal cancer. Following a negative Cologuard result, the [place] Cancer Society and U.S. Multi-Society Task Force screening guidelines recommend a Cologuard re-screening interval of 3 years. References: [place] Cancer Society (ACS). Colorectal cancer prevention and early detection. [place], [place]: [place] Cancer Society; [updated 2015Jan 21]. https://www.cancer.org/cancer/iqfni-gdypxu-bjztob/jhmwtokvg-dzgmfeisw-rjwqtfo/ac s-rec ommendations.html. Accessed May 30, 2018; Eduard HOPKINS, Vin GARCIA, Aide SPARROW, Colorectal Cancer Screening: Recommendations for Physicians and Patients from the U.S. Multi-Society Task Force on Colorectal Cancer Screening, Am J Gastroenterology 2017; 112:3592-6685. TEST TYPE: Composite algorithmic analysis of stool DNA-biomarkers with hemoglobin immunoassay. Quantitative values of individual biomarkers are not reportable and are not associated with individual biomarker result reference ranges. PRECAUTIONS AND LIMITATIONS: Cologuard is intended for colorectal cancer screening of adults of either sex, 45 years or older, who are at average-risk for colorectal cancer (CRC). Cologuard has been approved for use by the U.S. FDA. Cologuard may produce a false negative or false positive result. A negative Cologuard test result does not guarantee the absence of CRC or advanced adenoma (pre-cancer). Patients with a negative Cologuard test result should be advised to continue participating in a colorectal cancer screening program. The screening interval for Cologuard is currently recommended at an interval of every 3 years by the [place] Cancer Society and U.S. Multi-Society Task Force. A false positive result occurs when Cologuard produces a positive result, even though a colonoscopy may not find colorectal cancer or precancerous polyps. The performance of Cologuard has been established in a cross sectional study (i.e., single point in time) of average-risk adults aged 50-84. Cologuard performance in patients ages 45 to 49 years was estimated by sub-group analysis of near-age groups. Cologuard performance data in a 10,000 patient pivotal study using colonoscopy as the reference method can be accessed at the following location: www.[employer]/results. Additional description of the Cologuard test process, warnings and precautions can be found at www.cologuardtest.com. Rx only. 01/05/2021 us Garrison Jiménez NP LAB MOLECULAR DIAGNOSTICS ORD ERABLES Final Result [facility] * Colonoscopy (06/12/2018 12:00 PM EDT) Anatomical Region Laterality Modality Endoscopy 06/12/2018 12:0 0 PM EDT Narrative 06/12/2018 12:00 PM EDT PERFORMED AT [facility] LOCATION:[id number] Procedure Note CONVERSION, GENERIC - 02/13/2023 PERFORMED AT [facility] LOCATION:[id number] us Param Benson ENDOSCOPY PROCEDURE ORDERABLES Final Result from Last 3 Months or Most Recently Relevant to Health Maintenance
--- OUTSIDE RECORDS SUMMARY | 2025-04-02 13:55 | XMS_ITS | Clinical Summary ---
Author Organization [facility] Address [address] [place], [place] [id number] Care Team Providers Care Income Tax Auditor Name Role Phone Param Benson Primary Care Provider [phone] Allergies No known active allergies Medications propranolol (INDERAL) 80 mg tablet Take 80 mg by mouth twice daily. Active hydrochlorothia zide (HYDRODIURIL, ESIDRIX) 50 mg tablet Take 50 mg by mouth once daily. Active LOSARTAN POTASSIUM (LOSARTAN ORAL) Take 25 mg by mouth once daily. Active PRAVASTATIN SODIUM (PRAVASTATIN ORAL) Take 40 mg by mouth daily at bedtime. Active METFORMIN HCL (METFORMIN ORAL) Take 500 mg by mouth twice daily. Active FA/MV,CA,IRON,M IN/LYCOPENE/LUT (MULTIVITAL ORAL) Take 1 tablet by mouth once daily. Active aspirin, enteric coated (ASPIRIN, ENTERIC COATED) 81 mg EC tablet Take 81 mg by mouth once daily. Active misoprostol (CYTOTEC) 200 mcg tablet TAKE TWO TABLETs BY MOUTH AT BEDTIME the night PRIOR TO PROCEDURE 2 tablet 0 5 Active Additional Information Patient taking differently: 200 mcg ORAL DIRECTED, TAKE TWO TABLETs BY MOUTH AT BEDTIME the night PRIOR TO PROCEDURE, Reported on 07/12/2015 oxyCODONE-aceta minophen (PERCOCET) 5-325 mg tablet Take 1 tablet by mouth every 4 hours as needed for Pain. 10 tablet 0 5 Active ibuprofen (MOTRIN) 600 mg tablet Take 1 tablet by mouth every 6 hours as needed for Pain. Take with food. 40 tablet 0 5 Active levonorgestrel (MIRENA) 20 mcg/24 hr (5 years) IUDIndications: Endometrial polyp,Simple endometrial hyperplasia 1 Each by INTRAUTERINE route one time only. Active Active Problems Problem Noted Date Diagnosed Date Simple endometrial hyperplasia 08/22/2015 Endometrial polyp 08/22/2015 Family History Medical History Relation Comments Cancer Father Hypertension Father Arthritis Mother Hypertension Mother Thyroid Sister Relation Status Comments Father Mother Sister Social History Tobacco Use Types Packs/Day Years Used Date Smoking Tobacco: Never Smokeless Tobacco: Never Alcohol Use Standard Drinks/Week Comments No 0 (1 standard drink = 0.6 oz pur e alcohol) Comments No Sex and Gender Information Value Date Recorded Sex Assigned at Not on file Legal Sex Female 1:49 PM EDT Gender Identity Not on file Sexual Orientation Not on file Last Filed Vital Signs Vital Sign Reading Time Taken Comments Blood Pressure 142/100 12/14/2015 1:17 PM EDT Pulse 58 07/19/2015 5:00 PM EDT Temperature 36 C (96.8 F) 07/19/2015 4:30 PM EDT Respiratory Rate 16 07/19/2015 5:00 PM EDT Oxygen Saturation 97% 07/19/2015 5:00 PM EDT Inhaled Oxygen Concentration - - Weight 127.5 kg (281 lb) 12/14/2015 1:17 PM EDT Height 167.6 cm (5' 6 ) 12/14/2015 1:17 PM EDT Body Mass Index 45.35 12/14/2015 1:17 PM EDT Plan of Treatment Health Maintenance Due Date Last Done Comments Anxiety Screening 1979 Depression Screening 1979 HIV Screening 1979 Hepatitis C Screening 1979 DTaP,Tdap,Td Vaccine (1 - Tdap) 1980 CT Colonography 2006 Cologuard (FIT-DNA) 2006 Colonoscopy 2006 Colorectal Cancer Screening 2006 Fecal Occult Blood 2006 Lipid Screening 2006 Sigmoidoscopy 2006 Pneumococcal Vaccine: 50+ (1 of 1 - PCV) 2011 Shingrix Vaccine (1 of 2) 2011 Mammogram Screening 03/06/2016 03/06/2015 Cervical Cancer Screening 03/06/2018 03/06/2015 Diabetes Screening 07/12/2018 07/12/2015 Covid-19 Vaccine (2023- season) 2024 Influenza Vaccine (Season Ended) 2025 RSV Vaccine (1 - 1-dose 75+ series) 2036 Medical Devices Implanted Type Area Nurse Ldr Device Identifier Shelf Expiration Date Model / Serial / Lot Mirena Iud Tujuancarlos - [id number] Implanted:Qty: 1 on 07/19/2015 at [facility] Implant ELIS ANITA 01/17/2018 [employer]BEL / / [id number] Procedures Procedure Name Priority Date/Time Associated Diagnosis Comments BASIC METABOLIC PANEL Routine 07/12/2015 2:44 PM EDT Simple endometrial hyperplasia without atypia from Last 3 Months or Most Recently Relevant to Health Maintenance Results * BASIC METABOLIC PNL (07/12/2015 2:44 PM EDT) Glucose 97 65 - 100 mg/dL 07/12/2015 5:52 PM EDT [facility] BUN 14 8 - 25 mg/dL 07/12/2015 5:52 PM EDT [facility] Creatinine 0.70 0.70 - 1.40 mg/dL 07/12/2015 5:52 PM EDT [facility] Sodium 144 132 - 148 mmol/L 07/12/2015 5:52 PM EDT [facility] Potassium 3.5 3.5 - 5.0 mmol/L 07/12/2015 5:52 PM EDT [facility] Chloride 100 98 - 110 mmol/L 07/12/2015 5:52 PM EDT [facility] CO2 30 23 - 32 mmol/L 07/12/2015 5:52 PM EDT [facility] Anion Gap 14 0 - 15 mmol/L 07/12/2015 5:52 PM EDT [facility] Calcium 9.0 8.5 - 10.5 mg/dL 07/12/2015 5:52 PM EDT [facility] eGFR- >60 07/12/2015 5:52 PM EDT [facility] eGFR-All Other Races >60 . 07/12/2015 5:52 PM EDT [facility] Comment: eGFR (Estimated GFR) Units of measure: mL/min/1.73 meters squared eGFR is derived from the reexpressed MDRD Study equation using the following parameters: serum creatinine, age, gender and race. The creatinine assay has been calibrated to be traceable to IDMS. An eGFR <60 mL/min/1.73m2 for >3 months is consistent with chronic kidney disease. Refer to KDOQI guidelines for clinical interpretation. In patients with unstable renal function, e.g. those with acute kidney injury, the eGFR may not accurately reflect actual GFR. Blood specimen (specimen) BLOOD SPECIMEN / Unknown 07/12/2015 2:44 PM EDT 07/12/2015 2:46 PM EDT us Avis Moraes MD LABORATORY Final Result [facility] [address] [place] [place] [address] from Last 3 Months or Most Recently Relevant to Health Maintenance Care Teams Income Tax Auditor Relationship Specialty Start Date End Date Param Benson PCP - General Family Medicine 04/06/15
--- OUTSIDE RECORDS SUMMARY | 2025-04-02 13:55 | XMS_ITS | Encounter Summary ---
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 Name Role Phone Unavailable Primary Care Provider Unavailabl e Encounter Details Date Type Department Care Team (Late st Contact Info) Description 10/21/2023 Clinisync Result Encounter [facility] External Department Unsolicited Lawanda Espinoza MD [address] [place] [id number] Social History Tobacco Use Types Packs/Day Years Used Date Smoking Tobacco: Never Assessed Comments Unknown Sex and Gender Information Value Date Recorded Sex Assigned at Not on file Legal Sex Female 7:25 PM EDT Gender Identity Not on file Sexual Orientation Not on file documented as of this encounter Plan of Treatment Not on file documented as of this encounter Procedures Procedure Name Priority Date/Time Associated Diagnosis Comments MM TOMOSYNTHESIS SCREENING BI 10/21/2023 8:05 AM EST documented in this encounter Results * MM TOMOSYNTHESIS SCREENING BI (10/21/2023 8:05 AM EST) Anatomical Region Laterality Modality Other 10/21/2023 8:05 AM EST Narrative 10/21/2023 8:06 AM EST The [address] [address] Mammography Report Signed Patient: Pete Raphael MR#: [id number] : 1960 Acct:[id number] Age/Sex: 63 / F ADM Date: 10/18/23 Loc: MAMMO Attending Dr: Lawanda Espinoza M.D. Ordering Physician: Lawanda Espinoza M.D. Results: Date of Service: 10/18/23 Follow Up: Procedure(s): MM tomosynthesis screening BI Accession Number(s): [id number] cc: Lawanda Espinoza M.D. Patient Name: PETE RAPHAEL MR#: [id number] : 1960 Exam Date: 10/18/2023 Ordering Doctor: DR LAWANDA ESPINOZA . RADIOLOGY REPORT PROCEDURE: MM TOMOSYNTHESIS SCREENING BI COMPARISON: MG MAMM SCREEN 3D CAROL CAD, 10/16/2022. MG MAMM CAROL DIAG FU, 10/18/2022. MG STEREO CORE NDL W CLIP LT, 10/29/2022. MAMMO POST BIOPSY LEFT, 10/29/2022. INDICATIONS: Screening Calculator Name NCI Breast Cancer Risk Assessment Tool 5 Year Breast Cancer Risk 1.90% Lifetime Breast Cancer Risk 8.40% Personal Breast Cancer No Personal Ovarian Cancer No Treatments None Family Cancers None LOCATION: [facility] BREAST COMPOSITION: Scattered areas fibroglandular density. FINDINGS: DIAGNOSTIC CATEGORY 2--BENIGN FINDING. NO CHANGE FROM COMPARISON. Scattered benign-appearing calcifications are present. Scattered benign-appearing lymph nodes are present. Scattered benign-appearing nodules are present. RIGHT BREAST: No significant suspicious finding. LEFT BREAST: No significant suspicious finding. Micro clip marker upper outer quadrant, mid breast RECOMMENDATIONS: ROUTINE MAMMOGRAM AND CLINICAL EVALUATION IN 12 MONTHS. PLEASE NOTE: A NORMAL MAMMOGRAM DOES NOT EXCLUDE THE POSSIBILITY OF BREAST CANCER. A CLINICALLY SUSPICIOUS PALPABLE LUMP SHOULD BE BIOPSIED. Dictated by: Art Pack MD on 10/21/2023 at 07:57 Approved by: Art Pack MD on 10/21/2023 at 08:05 Dictated By: Art Pack M.D. Signed By: 10/21/23805 DD/ 4 TD/TT: .Net Developer: Procedure Note Radiology, Radiologist, - 10/21/2023 The [place] [id number] Mammography Report Signed Patient: Pete Raphael KMR#: [id number] : 1960cct:[id number] Age/Sex: 63 / FADM Date: 10/18/23 Loc: MAMMO Attending Dr: Lawanda Espinoza M.D. Ordering Physician: Lawanda Espinoza M.D.Results: Date of Service: 10/18/23Follow Up: Procedure(s): MM tomosynthesis screening BI Accession Number(s): [id number] cc: Lawanda Espinoza M.D. Patient Name: PETE RAPHAEL MR#: [id number] : 1960 Exam Date: 10/18/2023 Ordering Doctor: DR LAWANDA ESPINOZA . RADIOLOGY REPORT PROCEDURE: MM TOMOSYNTHESIS SCREENING BI COMPARISON: MG MAMM SCREEN 3D CAROL CAD, 10/16/2022. MG MAMM CAROL DIAGFU, 10/18/2022. MG STEREO CORE NDL W CLIP LT, 10/29/2022. MAMMO POST BIOPSYLEFT, 10/29/2022. INDICATIONS: Screening Calculator Name NCI Breast Cancer Risk Assessment Tool 5 Year Breast Cancer Risk 1.90% Lifetime Breast Cancer Risk 8.40% Personal Breast Cancer No Personal Ovarian Cancer No Treatments None Family Cancers None LOCATION: [facility] BREAST COMPOSITION: Scattered areas fibroglandular density. FINDINGS: DIAGNOSTIC CATEGORY 2--BENIGN FINDING. NO CHANGE FROM COMPARISON. Scattered benign-appearing calcifications are present. Scattered benign-appearing lymph nodes are present. Scattered benign-appearingnodules are present. RIGHT BREAST: No significant suspicious finding. LEFT BREAST: No significant suspicious finding. Micro clip marker upper outer quadrant, mid breast RECOMMENDATIONS: ROUTINE MAMMOGRAM AND CLINICAL EVALUATION IN 12 MONTHS. PLEASE NOTE: A NORMAL MAMMOGRAM DOES NOT EXCLUDE THE POSSIBILITY OFBREAST CANCER. A CLINICALLY SUSPICIOUS PALPABLE LUMP SHOULD BE BIOPSIED. Dictated by: Art Pack MD on 10/21/2023 at 07:57 Approved by: Art Pack MD on 10/21/2023 at 08:05 Dictated By: Art Pack M.D. Signed By:10/21/23805 DD/ 4 TD/TT: .Net Developer: Lawanda Espinoza MD [facility] Final Result documented in this encounter Visit Diagnoses Not on filedocumented in this encounter
--- NOTE | 2025-04-02 14:07 | ED_ITS ---
HPI HPI - General Adult General Chief complaint: Urogenital-Female Stated complaint: POSSIBLE UTI Time Seen by Provider: 04/02/25 13:50 Source: patient Mode of arrival: walk-in History of Present Illness HPI narrative: 64-year-old female presents to the emergency department for chief complaint of frequency of urination as well as urgency and cloudiness and some blood in it. She has never had a UTI before. Symptoms started today and she has not been vomiting or running a fever or having flank pain. Related Data Previous Rx's ?Medication ?Instructions ?Recorded cephalexin 500 mg capsule 500 mg PO TID 7 days #21 cap s 04/02/25 Allergies Allergy/AdvReac Type Severity Reaction Status Date / Time No Known Drug Allergies Allergy Verified 04/02/25 13:55 Review of Systems ROS Narrative A ten point review of systems is negative except as noted above. PFSH PFSH Social History Little interest or pleasure in doing things: not at all Feeling down, depressed, or hopeless: not at all Exam Narrative Exam Narrative: Nurses note and vital signs reviewed and patient is not hypoxic. General: The patient appears well and in no apparent distress. Patient is resting comfortably sitting on a chair. Skin: Warm, dry, no pallor noted. There is no rash noted. Head: Normocephalic, atraumatic Eye: Normal conjunctiva, no drainage Ears, Nose, Mouth, and Throat: oral mucosa is moist. Nares patent. Cardiovascular: Regular Rate and Rhythm Respiratory: Patient is in no distress, no accessory muscle use, lungs are clear to auscultation, no wheezing, rales or rhonchi Back: non-tender, no CVA tenderness bilaterally to percussion. GI: Soft and nontender Musculoskeletal: No joint swelling Neurological: A&O, normal speech Psychiatric: Cooperative Constitutional Vital Signs, click to edit/add: Last Vital Signs Temp 98.1 F 04/02/25 13:49 Pulse 60 04/02/25 13:49 Resp 04/02/25 13:49 BP 168/98 H 04/02/25 13:49 Pulse Ox 99 04/02/25 13:49 O2 Del Method Room Air 04/02/25 13:49 Course Vital Signs Vital signs: Vital Signs Temperature 98.1 F 04/02/25 13:49 Pulse Rate 60 04/02/25 13:49 Respiratory Rate 16 04/02/25 13:49 Blood Pressure 168/98 H 04/02/25 13:49 Pulse Oximetry 99 04/02/25 13:49 Oxygen Delivery Method Room Air 04/02/25 13:49 Temperature 98.1 F 04/02/25 13:49 Pulse Rate 60 04/02/25 13:49 Respiratory Rate 16 04/02/25 13:49 Blood Pressure 168/98 H 04/02/25 13:49 Pulse Oximetry 99 04/02/25 13:49 Oxygen Delivery Method Room Air 04/02/25 13:49 Medical Decision Making MDM Narrative Medical decision making narrative: UTI is identified. She was started on Keflex here and prescribed same. Treatment diagnosis and follow-up were discussed with the patient. Differential Diagnosis Differential Diagnosis: UTI, cystitis Lab Data Lab results reviewed: Yes I reviewed the patient's lab results Labs: Lab Results 04/02/25 Range/Units 13:56 Urine Color Red A (YELLOW) Urine Clarity Turbid A (CLEAR) Urine pH Color interference A (5.0-9.0) Ur Specific [place] 1.020 (1.005-1.025) Urine Protein Color interference A (NEG/TRACE) mg/dL Urine Glucose (UA) Color interference A (NEGATIVE) mg/dL Urine Ketones Color interference A (NEGATIVE) mg/dL Urine Occult Blood Color interference A (NEGATIVE) Urine Nitrite Color interference A (NEGATIVE) Urine Bilirubin Color interference A (NEGATIVE) Urine Urobilinogen Color interference A (0.2-1.0) EU/dL Ur Leukocyte Esterase Color interference A (NEGATIVE) Urine RBC >100 A (0-2) #/HPF Urine WBC 10-20 A (NONE SEEN) #/HPF Ur Squamous Epith Cells Few A (NONE/RARE) #/LPF Urine Crystals None seen (None Seen) #/HPF Urine Bacteria Moderate A (NONE SEEN) #/HPF Urine Casts None seen (NONE SEEN) #/LPF Urine Mucus None seen (NONE SEEN) Ur Culture Indicated? Yes-[facility] Discharge Plan Discharge Chief Complaint: Urogenital-Female Clinical Impression: Urinary tract infection Patient Disposition: Home, Self-Care Time of Disposition Decision: 14:21 Condition: Good Mode of Transportation: Private Vehicle Prescriptions / Home Meds: New cephalexin 500 mg capsule 500 mg PO TID 7 Days Qty: 21 0RF Print Language: Ivorian Instructions: Urinary Tract Infection in Women (ED) Referrals: Boogie Lopez MD [Primary Care Provider, Family Practice] - 1 week
[2025-04-02 14:14] LABS: Glucose Urine UA COLOR INTERFERENCE mg/dL (NEGATIVE)
[2025-04-02 14:15] LABS: Cast Seen? NONE SEEN #/LPF (NONE SEEN); Crystals Seen? None Seen #/HPF (None Seen); Urine Culture Indicated YES-FRMC
[2025-04-02] MEDS: CEPHALEXIN 500 MG CAPSULE PO (14:27)
== END 2025-04-02 14:32 | disposition home or self-care (01) ==
PROVIDERS: Emergency Provider Emergency Medicine; PCP Family Medicine
DX: N39.0 Urinary tract infection, site not specified (principal)
CPT/HCPCS: 81001; 87086; 87088; 87186; 99283